=== PATIENT | female | born 2000 | race Caucasian/White ===

== ENCOUNTER 2019-04-11 10:41 | Outpatient (CLI) | payer OTHER, SELFPAY ==
[2019-04-11 12:18] LABS: Hemoglobin A1C 5.4 % (<5.7)
[2019-04-11 12:31] LABS: Free T4 Free Thyroxine 0.71 ng/mL (0.78-2.19)
[2019-04-13 04:37] LABS: Insulin Level Total 5.6 uIU/mL (<=19.6)
[2019-04-13 10:05] LABS: Testosterone Total 29 ng/dL (2-45)
[2019-04-14 12:50] LABS: DHEA-Sulfate 292 mcg/dL (51-321)
[2019-04-15 04:55] LABS: Prolactin 20.7 ng/mL (***)
== END 2019-04-11 10:42 | disposition home or self-care (01) ==
PROVIDERS: Visit Provider Nurse Practitioner
DX: N92.6 Irregular menstruation, unspecified (principal)
CPT/HCPCS: 36415; 82627; 83036; 83498; 83525; 84146; 84403; 84439; 84443

== ENCOUNTER 2019-08-10 22:16 | Emergency (ER) | payer OTHER, SELFPAY ==
[2019-08-10 22:20] VITALS: BP 141/54; PULSE 106; RESP 16; TEMP 36.9; O2SAT 98
[2019-08-10 22:30] VITALS: BP 135/89; PULSE 88; RESP 19; TEMP 36.8; O2SAT 100
--- NOTE | 2019-08-10 22:57 | ED.DENTAL ---
HPI - Dental/Oral General Chief complaint: Dental/Oral Stated complaint: dental pain Time Seen by Provider: 08/10/19 22:57 Source: patient Mode of arrival: ambulatory Limitations: no limitations History of Present Illness HPI Narrative: Patient is a 19-year-old female who presents for evaluation of tooth ache. Patient reports she has had over a 1 month history of worsening left upper molar pain that is described as dull, aching, throbbing in nature. Patient states pain has especially worsened over the past week. She has not noticed any abscess or drainage. She states that she is try to get dental follow-up but has difficulties due to insurance and financial barriers. Patient without fever, no facial swelling or ear pain. No sore throat or difficulty swallowing. Patient has been able to tolerate oral intake. No neck pain. Related Data Home Medications Medication Instructions Recorded Confirmed escitalopram oxalate mg 08/10/19 hydroxyzine HCl 08/10/19 08/10/19 trazodone 08/10/19 Allergies Allergy/AdvReac Type Severity Reaction Status Date / Time ceftriaxone Allergy Unknown Swelling Verified 08/10/19 22:17 CEFTRIAXONE SODIUM Allergy Mild Swelling Uncoded 07/31/16 10:12 Review of Systems Review of Systems: Narrative: CONSTITUTIONAL: Denies fever CARDIOVASCULAR: Denies chest pain RESPIRATORY: Denies cough or dyspnea. GASTROINTESTINAL: Denies abdominal pain SKIN: Denies rash MUSCULOSKELETAL: Denies back pain NEUROLOGIC: Denies headache [facility]LY [facility] Past Medical History Medical History (Updated 08/10/19 @ 23:09 by Argentina Sauceda MD) Dental caries Surgical History Surgical History (Updated 08/10/19 @ 23:09 by Argentina Sauceda MD) No pertinent past surgical history Family History Family History (Updated 07/28/16 @ 13:48 by DOCTOR UNKNOWN) Other Cerebrovascular accident Family history of allergic disorder Family history of malignant neoplasm Hypertension Social History Social History (Updated 08/10/19 @ 23:09 by Argentina Sauceda MD) Smoking status: Former smoker Alcohol intake: never Substance use: never Gender identity (if verbalized by the patient): Female Exam Narrative: Exam Narrative: GENERAL: Awake, alert, conversant, tearful HEAD: Normocephalic, atraumatic. No facial edema or erythema. EYES: PERRLA and EOMI. ENT: Nares clear, no rhinorrhea or epistaxis. Mucous membranes moist. No pre-or postauricular lymphadenopathy. No trismus. Uvula is midline. Patient with dental caries molar 15, 16, no abscess. No excoriation of the gingiva. Mild erythema. No bleeding. NECK: Supple. No lymphadenopathy. CHEST: No respiratory distress, breathing even and non labored HEART: Regular rate, sinus rhythm ABDOMEN:Non distended, non tender EXTREMITIES: Normal range of motion. No edema. SKIN: Warm, dry, no rash. NEURO:No focal deficits. Alert and oriented x3 Course Course Emergency Course: Patient's pain is consistent with dental caries. At the time of assessment there are no signs of systemic illness, no focal signs of space-occupying abscess or lesions, no signs of Chrsi angina or other concerning retropharyngeal infection. The patient is controlling her secretions well without signs of airway compromise. Patient is thought reasonable for outpatient follow-up with dental evaluation. Patient given oral antibiotics and medication for analgesia. Vital Signs Vital signs: Vital Signs Temperature 36.9 C 08/10/19 22:20 Pulse Rate 106 H 08/10/19 22:20 Respiratory Rate 16 08/10/19 22:20 Blood Pressure 141/54 H 08/10/19 22:20 Pulse Oximetry 98 08/10/19 22:20 Temperature 36.9 C 08/10/19 22:20 Pulse Rate 106 H 08/10/19 22:20 Respiratory Rate 16 08/10/19 22:20 Blood Pressure 141/54 H 08/10/19 22:20 Pulse Oximetry 98 08/10/19 22:20 Discharge Plan Discharge Clinical Impression: Dental caries Patient Disposition: Home, Self-Care Condition: Stab
[2019-08-10] MEDS: AMOXICILLIN/CLAVULANATE K 875-125 MG TAB 1 TABLET PO (23:10)
[2019-08-10 23:14] VITALS: BP 133/67; PULSE 74; RESP 19; TEMP 36.8; O2SAT 100
== END 2019-08-10 23:15 | disposition home or self-care (01) ==
PROVIDERS: Emergency Provider Emergency Medicine
DX: K02.9 Dental caries, unspecified (principal); Z87.891 Personal history of nicotine dependence
CPT/HCPCS: 99283; A9270

== ENCOUNTER 2020-01-08 20:10 | Emergency (ER) | payer OTHER, SELFPAY ==
[2020-01-08 20:13] VITALS: BP 138/72; PULSE 85; RESP 18; TEMP 36.3; O2SAT 95
--- NOTE | 2020-01-08 22:58 | PC.NURSE ---
Not in WR at [id number] or [id number], LWBS
== END 2020-01-08 22:38 | disposition left against medical advice (07) ==
PROVIDERS: PCP Nurse Practitioner Family
DX: G43.909 Migraine, unspecified, not intractable, without status migrainosus (principal)
CPT/HCPCS: 99199

== ENCOUNTER 2020-05-22 14:36 | Outpatient (CLI) | payer OTHER, SELFPAY ==
--- NOTE | ~2020-05-22 | CT_ITS ---
EXAMINATION: CT brain wo con DATE: 05/22/2020 14:57 INDICATION: Migraine headache. TECHNIQUE: Computed tomography (CT) of the head was performed without intravenous contrast. The mA wa s adjusted according to patient size. Iterative reconstruction technique was employed. The dose-lengt h product was 529.67 mGy-cm. COMPARISON: None FINDINGS: There is no intracranial hemorrhage, acute infarction, or abnormal intracranial mass lesion . The ventricles are normal in size. The paranasal sinuses are clear. The mastoid air cells are brandie l. IMPRESSION: 1. Normal brain. Reviewed, dictated and finalized at location A. IMPRESSION: 1. Normal brain.
== END 2020-05-22 14:37 | disposition home or self-care (01) ==
PROVIDERS: PCP Nurse Practitioner Family; Visit Provider Psychiatry & Neurology Neurology
DX: G43.909 Migraine, unspecified, not intractable, without status migrainosus (principal)
CPT/HCPCS: 70450